=== PATIENT | female | born 1980 | race American Indian/Alaskan Native ===

== ENCOUNTER 2016-11-06 12:55 | Emergency (ER) | payer OTHER ==
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
[2016-11-06 13:59] VITALS: BP 121/79
--- NOTE | 2016-11-06 15:20 | XRay Report ---
AP AND LATERAL LUMBOSACRAL SPINE: The vertebral bodies are well mineralized and normal in alignment and vertebral height with well preserved interspace distances. The visualized portions of the posterior elements are normal. IMPRESSION: Normal study.
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
== END 2016-11-06 18:08 | disposition home or self-care (01) ==
LOC: ED 12:55
DX: S39.012A Strain of muscle, fascia and tendon of lower back, initial encounter (principal); S76.911A Strain of unspecified muscles, fascia and tendons at thigh level, right thigh, initial encounter; V89.2XXA Person injured in unspecified motor-vehicle accident, traffic, initial encounter; Y93.89 Activity, other specified; Y92.89 Other specified places as the place of occurrence of the external cause; Y99.8 Other external cause status
CPT/HCPCS: 72100; 99283

== ENCOUNTER 2018-06-07 06:15 | Emergency (ER) | payer OTHER ==
[2018-06-07 06:24] VITALS: BP 105/65
[2018-06-07 07:35] LABS: Basophils % (Auto) 0.2 % (0.0-1.8); Eosinophils # (Auto) 0.1 K/mm3 (0.0-0.4); Eosinophils % (Auto) 1.2 % (0.0-4.3); Hematocrit 33.9 % (30.3-42.9); Hemoglobin 11.1 gm/dl (10.1-14.3); Lymphocytes # (Auto) 1.9 K/mm3 (1.2-5.4); Lymphocytes % (Auto) 29.8 % (13.4-35.0); Mean Corpuscular HGB Conc 33 % (30-34); Mean Corpuscular Volume 85 fl (79-97); Monocytes # (Auto) 0.4 K/mm3 (0.0-0.8); Platelet Count 198 K/mm3 (140-440); Red Cell Distribution Width 14.3 % (13.2-15.2)
[2018-06-07 07:42] LABS: Bilirubin,Urine NEG (Negative); Blood,Urine NEG (Negative); Color,Urine Straw (Yellow); Protein,Urine <15 mg/dL mg/dL (Negative); Urobilinogen,Urine < 2.0 mg/dL (<2.0)
[2018-06-07 07:47] LABS: Alanine Aminotransferase 10 units/L (7-56); BUN/Creatinine Ratio 13; Blood Urea Nitrogen 5 mg/dL (7-17); Calcium 8.8 mg/dL (8.4-10.2); Hemolysis Index 3
[2018-06-07 08:45] LABS: Bacteria,Urine 1+ /HPF (Negative); Mucus,Urine FEW /HPF
--- NOTE | 2018-06-07 10:41 | Ultrasound Report ---
EXAM: US OB <= 14 WEEKS FETUS HISTORY: pelvic pain and pregnat TECHNIQUE: A transabdominal scan was performed in the usual fashion, employing grayscale imaging, col or flow Doppler imaging, duplex Doppler COMPARISON: None available. FINDINGS: TRANSVAGINAL SCAN: The uterus is enlarged, measuring approximately 12.5 cm CC by 8.7 cm AP by by 8.5 cm transverse. There is an approximately 3.8 cm x 2.2 cm x 3.6 cm subserosal mass in the right side o f the body of the uterus in keeping with a fibroid. There is a single intrauterine gestational sac with an estimated gestational age of 9 weeks, 5 days, based on a CRL of 2.9 mm. The DISHA is 01/05/2019. The estimated heart rate is 177 beats per prateek te. There is a small (approximately 2.2 cm x 9.3 mm x 6.8 mm) subchorionic hemorrhage seen. Both ovaries are normal in size and echogenicity. The right ovary measures approximately 3.4 cm x 2 c m x 3.3 cm, and the left ovary measures approximately 4.5 cm x 2.5 cm x 3.6 cm. There is an approxima tely 2.4 cm x 2 cm x 1.2 cm left ovarian cyst, presumed to represent a corpus luteum cyst. Both ovaries demonstrate normal color flow Doppler and duplex Doppler signal; there is no stigmata of ovarian torsion seen. No adnexal mass or free fluid is seen in the pelvis. IMPRESSION: 1. Single live IUP within the fundal endometrial cavity. 2. Estimated gestational age of 9 weeks, 5 days plus/minus standard deviation. The DISHA is 01/05/2019. 3. The estimated heart rate is 177 beats per minute. 4. Small (approximately 2.2 cm x 9.3 mm x 6.8 mm) subchorionic hemorrhage seen. 5. The amniotic fluid volume is within normal limits. 6. Approximately 2.4 cm x 2 cm x 1.2 cm left ovarian cyst, presumed to represent a corpus luteum cys t. 7. The ovaries are otherwise within normal limits; no evidence for torsion. 8. No free fluid is seen in the pelvis. This document is electronically signed by Reddy Major MD., June 07 2018 10:39:39 AM ET
--- NOTE | 2018-06-07 12:16 | Ultrasound Report ---
PROCEDURE: US OB TRANSVAGINAL TECHNIQUE: Real-time transvaginal sonography of the uterus, placenta, amniotic fluid, adnexa, and fe tus was performed with image documentation. Measurements were obtained to determine age/size. M -mode Doppler was used to document heartbeat. HISTORY: PELVIC PAIN COMPARISONS: None . FINDINGS: There is a single intrauterine gestation. Uterus measures 12.5 x 8.7 x 8.5 cm. CRL: 29 mm, which corresponds to a gestational age of: 9 weeks, 5 days. Yolk Sac: Normal . Embryonic Cardiac Activity: 177 bpm . Gestational Sac: Normal . Right Ovary: 4.7 x 3.5 x 2.1 cm . Left Ovary: 2.9 x 2.7 x 4.4 cm . Estimated delivery date: 01/05/2019 . Comment: Complete anatomic survey at 18-20 weeks suggested . IMPRESSION: 1. Single living intrauterine gestation at approximately 9 weeks 5 days . 2. EDC by US 01/05/2019 . This document is electronically signed by Maria Esther Paula MD., June 07 2018 12:14:32 PM ET
--- NOTE | 2018-06-07 12:29 | Emergency Department Report ---
ED General Adult HPI - General Chief complaint: Abdominal Pain Stated complaint: ABD PAIN Time Seen by Provider: 06/07/18 08:09 Source: patient Mode of arrival: Ambulatory Limitations: No Limitations - History of Present Illness Initial comments: 38-year-old -Prydeinig female G2, P1 reports most department 9 weeks complaining of lower abdominal pain. 4:00 this morning without any vaginal bleeding, vaginal discharge or dysuria. Reports no fever, chills, sweats, chest pain, palpitations, did have some throat irritation earlier this morning that preceded her abdominal pain. Radiation: non-radiation Severity scale (0 -10): 8 Quality: aching Consistency: intermittent Improves with: none Associated Symptoms: denies other symptoms. denies: cough, diaphoresis, loss of appetite, malaise, nausea/vomiting, shortness of breath, weakness - Related Data Previous Rx's Medication Instructions Recorded Last Taken Type Cyclobenzaprine [Flexeril] 10 mg PO TID PRN #15 tablet 11/06/16 Unknown Rx Ibuprofen [Motrin 600 MG tab] 600 mg PO Q8H PRN #30 tablet 11/06/16 Unknown Rx Allergies Allergy/AdvReac Type Severity Reaction Status Date / Time No Known Allergies Allergy Unverified 11/06/16 13:52 ED Review of Systems ROS: Stated complaint: ABD PAIN Other details as noted in HPI Constitutional: denies: chills, fever Eyes: denies: eye pain, eye discharge, vision change ENT: denies: ear pain, throat pain Respiratory: denies: cough, shortness of breath, wheezing Cardiovascular: denies: chest pain, palpitations Endocrine: no symptoms reported Gastrointestinal: denies: abdominal pain, nausea, diarrhea Genitourinary: denies: urgency, dysuria, discharge Musculoskeletal: denies: back pain, joint swelling, arthralgia Skin: denies: rash, lesions Neurological: denies: headache, weakness, paresthesias Psychiatric: denies: anxiety, depression Hematological/Lymphatic: denies: easy bleeding, easy bruising ED Past Medical Hx - Past Medical History Previous Medical History?: No - Surgical History Past Surgical History?: Yes Additional Surgical History: x 1 - Social History Smoking Status: Never Smoker Substance Use Type: None - Medications Home Medications: Home Medications Medication Instructions Recorded Confirmed Last Taken Type Cyclobenzaprine [Flexeril] 10 mg PO TID PRN #15 tablet 11/06/16 Unknown Rx Ibuprofen [Motrin 600 MG tab] 600 mg PO Q8H PRN #30 tablet 11/06/16 Unknown Rx ED Physical Exam - General Limitations: No Limitations General appearance: alert, in no apparent distress - Head Head exam: Present: atraumatic, normocephalic - Eye Eye exam: Present: normal appearance, PERRL, EOMI Pupils: Present: normal accommodation - ENT ENT exam: Present: normal exam, normal orophraynx, mucous membranes moist, other (pharynx is no edema or exudate. Mild erythema noted. Airway is patent. Tongue and uvula midline, normal size, normal voice, no muffling) - Neck Neck exam: Present: normal inspection, full ROM. Absent: lymphadenopathy, thyromegaly - Respiratory Respiratory exam: Present: normal lung sounds bilaterally. Absent: respiratory distress, wheezes, rales, rhonchi, chest wall tenderness, accessory muscle use, decreased breath sounds - Cardiovascular Cardiovascular Exam: Present: regular rate, normal rhythm. Absent: systolic murmur, diastolic murmur, rubs, gallop - GI/Abdominal GI/Abdominal exam: Present: soft, normal bowel sounds. Absent: tenderness, guarding, hyperactive bowel sounds, hypoactive bowel sounds, organomegaly - Extremities Exam Extremities exam: Present: normal inspection - Back Exam Back exam: Present: normal inspection - Neurological Exam Neurological exam: Present: alert, oriented X3 - Psychiatric Psychiatric exam: Present: normal affect, normal mood - Skin Skin exam: Present: warm, dry, intact, normal color. Absent: rash ED Course Vital Signs 06/07/18 06:23 Temperature 98.9 F Pulse Rate 98 H Respiratory 16 Rate Blood Pressure 105/65 O2 Sat by Pulse 99 Oximetry ED Medical Decision Making - Lab Data Result diagrams: 06/07/18 07:15 06/07/18 07:15 Critical care attestation.: If time is entered above; I have spent that time in minutes in the direct care of this critically ill patient, excluding procedure time. ED Disposition Clinical Impression: Pelvic pain during Disposition: - TO HOME OR SELFCARE Is pt being admited?: No Does the pt Need Aspirin: No Condition: Stable Instructions: Abdominal Pain (ED), (ED) Referrals: [facility] [Provider Group] - 3-5 Days
== END 2018-06-07 12:48 | disposition home or self-care (01) ==
LOC: ED 06:15
DX: O26.891 Other specified pregnancy related conditions, first trimester (principal); R10.30 Lower abdominal pain, unspecified; R10.2 Pelvic and perineal pain; Z3A.09 9 weeks gestation of pregnancy
CPT/HCPCS: 36415; 76801; 76817; 80053; 81001; 84702; 85025